=== PATIENT | male | born 1945 | race Caucasian/White ===

== ENCOUNTER 2024-02-22 22:04 | Emergency (ER) | payer MEDICARE, OTHER, SELFPAY ==
[2024-02-22 22:09] VITALS: BP 180/100
[2024-02-22 22:39] LABS: Urine Albumin Negative (Neg - Trace); Urine Bilirubin Negative (Negative); Urine Character Clear (Clear); Urine Color Yellow; Urine Glucose Negative (Negative); Urine Ketone Negative (Negative); Urine Leukocyte Negative (Negative); Urine Nitrite Negative (Negative); Urine Occult Blood 3+ (Negative); Urine Urobilinogen Negative (Neg - 1+)
[2024-02-22 22:44] LABS: % Basophils 0.3 % (0-2); % Eosinophils 0.2 % (0-6); % Immature Granulocytes 0.3 % (0-0.5); % Lymphocytes 11.5 % (20.5-51.1); % Monocytes 6.6 % (1.7-9.3); % Neutrophils 81.1 % (42.2-75.2); Absolute Lymphocytes 1.2 10^3/uL (1.2-3.4); Absolute Monocytes 0.7 10^3/uL (0.1-0.6); Absolute Neutrophils 8.2 10^3/uL (1.4-6.5); Hematocrit 46.5 % (39.0-52.0); Hemoglobin 15.6 g/dL (13.0-18.0); Mean Corp Hgb Conc. 33.5 g/dL (33.0-37.0); Mean Corpuscular Hgb 29.8 pg (27.0-31.0); Mean Corpuscular Volume 88.7 fL (80.0-94.0); Nucleated Red Blood Cells % 0 % (-); Red Blood Cell Count 5.24 10^6/uL (4.70-6.10); Red Cell Dist. Width 13.5 % (11.5-14.5); White Blood Cell Count 10.2 10^3/uL (4.8-10.8)
[2024-02-22 22:47] LABS: Urine Squamous Cell 0-2 /LPF (Few)
[2024-02-22 22:48] LABS: Urine Red Blood Cell 70-80 /HPF (0-2); Urine White Cell 0-2 /HPF (0-5)
[2024-02-22 22:51] LABS: Mean Platelet Volume 10.3 fL (7.4-10.4); Platelet Count 120 10^3/uL (130-400)
[2024-02-22 23:03] LABS: Blood Urea Nitrogen 31 mg/dl (9-20); Calcium 10.4 mg/dl (8.4-10.2); Carbon Dioxide 21 mmol/L (22-30); Chloride 105 mmol/L (98-107); Glucose 142 mg/dl (70-99); Sodium 141 mmol/L (135-145); eGFR 43.83
[2024-02-22 23:54] VITALS: BMI 30.6
[2024-02-22 23:56] VITALS: BP 200/100
[2024-02-23] VITALS: BP 192/105
--- NOTE | 2024-02-23 00:11 | ED.GENMED ---
History of Present Illness
<Paulette Muhammad DO, Resident - Last Filed: 02/23/24 03:13>
General
Chief Complaint: Male Genito-Urinary Symptoms
Source: patient and spouse
Time Seen by Provider: 02/22/24 23:51
History of Present Illness
History of Present Illness:
Mr. Ramon Smith is a 79yo male presenting pmh prostate ca s/p radical prostatectomy and radiation, R hernia with bowel repair, GERD in the ED for pink urine. R anterior flank pain started after eating his birthday meal. Was a 6/10 sore pain,
states it is increasing now. Does not radiate. Feels like when he had previous bleeding problem with the hernia surgical site. States bariatric surgeon did not use mesh and hand sutured the hernia repair, and was able to repair the bowel that was
injured in this surgery. The radiation for prostate ca 'burnt' his bladder, leaving him incontinent. Pt reports being diaphoretic and feverish after finishing working on his barn. Denies NELSON, dizziness, lightheadedness, N/V/D, dysuria, increased
frequency of urination, lower extremity swelling. Last BM last night. Denie hx nephrolithiasis.
Pt states he has white coat htn.
Past History
<Paulette Muhammad DO, Resident - Last Filed: 02/23/24 03:13>
Past History
ED Past Medical History: Cancer
ED Past Surgical History: Bowel resection (due to damage during R hernia repair), Urological and Other (R hernia)
Patient has exhibited threatening behavior?: No
Phy Exam
<Paulette Muhammad DO, Resident - Last Filed: 02/23/24 03:13>
General Physical Exam
General Presentation: well appearing
General age: appears stated age
General Skin: warm and dry
General Habitus: obese
General Mental: alert
Cardiovascular Exam
Cardiovascular Exam: regular rate/rhythm, no edema, no gallop, no murmur and normal peripheral pulses
Heart Sounds: normal
Pulmonary Exam
Pulmonary Exam: lungs clear, no respiratory distress, no rales, no rhonchi, no wheezing and no cough
Gastrointestinal Exam
Gastrointestinal Exam: soft, no organomegaly, no pulsatile mass, non distended and no cva tenderness
Palpation: right upper quadrant: Moderate tenderness
Abdominal Scars: right lower quadrant
Auscultation of Abdomen: hypoactive
Neurological Exam
Neurological Exam: alert and oriented x3
Psychiatric Exam
Psychiatric Exam: normal mood/affect
Course
<Paulette Muhammad DO, Resident - Last Filed: 02/23/24 03:13>
Orders/Labs/Results
Orders:
Orders
02/22/24 22:30
Basic Metabolic Panel Urgent
Complete Blood Count/With Diff Urgent
Urinalysis Reflex To Culture Urgent
Date Specimen was Collected: 02/22/24
Time Specimen was Collected: 22:16
Urine Microscopic Reflex Cult Urgent
02/23/24 00:20
CT Abd/pel Without Iv Or Oral Urgent
Comment:
Reason For Exam: hematuria, concern for nephrolithiasis
02/23/24 01:48
Morphine Sulfate 4 mg IV NOW STA
Ondansetron Injectable [Zofran] 4 mg IV NOW STA
02/23/24 01:51
Hydrocodone 5/APAP 325 [[place] 5/325] 2 tablet PO NOW STA
Abnormal Lab Results
02/22/24
22:30
Plt Count 120 L 10^3/uL
(130-400)
Absolute Neuts (auto) 8.2 H 10^3/uL
(1.4-6.5)
Absolute Monos (auto) 0.7 H 10^3/uL
(0.1-0.6)
Neutrophils % 81.1 H %
(42.2-75.2)
Lymphocytes % 11.5 L %
(20.5-51.1)
Carbon Dioxide 21 L mmol/L
(22-30)
BUN 31 H mg/dl
(9-20)
Creatinine 1.6 H mg/dL
(0.7-1.3)
Glucose 142 H mg/dl
(70-99)
Calcium 10.4 H mg/dl
(8.4-10.2)
Ur Occult Blood Reflex 3+ A
(Negative)
Urine RBC 70-80 A /HPF
(0-2)
02/22/24 22:30
02/22/24 22:30
Vital Signs
Initial and Last Documented VS:
Initial Vital Signs
Temp Pulse Resp BP Pulse Ox
98.4 F 87 20 180/100 96
02/22/24 22:09 02/22/24 22:09 02/22/24 22:09 02/22/24 22:09 02/22/24 22:09
Last Documented Vital Signs
Temp Pulse Resp BP Pulse Ox
98.4 F 77 15 172/88 96
02/22/24 22:09 02/23/24 01:00 02/23/24 01:00 02/23/24 01:00 02/22/24 22:09
<Hay Lisa, DO - Last Filed: 02/23/24 01:48>
Orders/Labs/Results
Orders:
Orders
02/22/24 22:30
Basic Metabolic Panel Urgent
Complete Blood Count/With Diff Urgent
Urinalysis Reflex To Culture Urgent
Date Specimen was Collected: 02/22/24
Time Specimen was Collected: 22:16
Urine Microscopic Reflex Cult Urgent
02/23/24 00:20
CT Abd/pel Without Iv Or Oral Urgent
Comment:
Reason For Exam: hematuria, concern for nephrolithiasis
02/23/24 01:48
Morphine Sulfate 4 mg IV NOW STA
Ondansetron Injectable [Zofran] 4 mg IV NOW STA
02/23/24 01:51
Hydrocodone 5/APAP 325 [[place] 5/325] 2 tablet PO NOW STA
Abnormal Lab Results
02/22/24
22:30
Plt Count 120 L 10^3/uL
(130-400)
Absolute Neuts (auto) 8.2 H 10^3/uL
(1.4-6.5)
Absolute Monos (auto) 0.7 H 10^3/uL
(0.1-0.6)
Neutrophils % 81.1 H %
(42.2-75.2)
Lymphocytes % 11.5 L %
(20.5-51.1)
Carbon Dioxide 21 L mmol/L
(22-30)
BUN 31 H mg/dl
(9-20)
Creatinine 1.6 H mg/dL
(0.7-1.3)
Glucose 142 H mg/dl
(70-99)
Calcium 10.4 H mg/dl
(8.4-10.2)
Ur Occult Blood Reflex 3+ A
(Negative)
Urine RBC 70-80 A /HPF
(0-2)
02/22/24 22:30
02/22/24 22:30
Vital Signs
Initial and Last Documented VS:
Initial Vital Signs
Temp Pulse Resp BP Pulse Ox
98.4 F 87 20 180/100 96
02/22/24 22:09 02/22/24 22:09 02/22/24 22:09 02/22/24 22:09 02/22/24 22:09
Last Documented Vital Signs
Temp Pulse Resp BP Pulse Ox
98.4 F 77 15 172/88 96
02/22/24 22:09 02/23/24 01:00 02/23/24 01:00 02/23/24 01:00 02/22/24 22:09
<Paulette Muhammad DO, Resident - Last Filed: 02/23/24 03:13>
MDM/Problems Addressed
Differential Diagnosis Includes:
pyelonephritis, bladder malignancy, SBO
MDM/Problems Addressed:
Mr. Ramon Smith is a 79yo male presenting pmh prostate ca s/p radical prostatectomy and radiation, R hernia with bowel repair, GERD in the ED for pink urine and RLQ abdominal pain.
Pyelonephritis is unlikely at this time due to pt being afebrile and no CVA tenderness.
Bladder malignancy is unlikely at this time due to no bladder abnormalities on CT abdomen/pelvis, no weight loss, and acute onset of hematuria. And presence of 3mm ureteral calculus with hydronephrosis.
SBO unlikely as pt's last BM yesterday evening, no N/V, and hypoactive bowel sounds.
Chronic conditions affecting care: Previous abdomnial surgery
Acute Exacerbation and/or Progression of Chronic Illness: Previous abdomnial surgery
<Paulette Muhammad DO, Resident - Last Filed: 02/23/24 03:13>
*Radiology
Radiology exam reviewed: radiology read reviewed
<Hay Lisa DO - Last Filed: 02/23/24 01:48>
*Radiology
Radiology exam reviewed: preliminary read by ED provider (Stone noted to the right ureter)
*Pulse Oximetry
Patient hypoxic: no
*Critical Care Note
Total Time (30-74mins, 75-104mins- exclusive of procedures): Not Applicable
Data Reviewed
Source: patient
Prescriptions/Medications Considered But Not Given:
Considered antibiotics but no evidence of infection in urine white count normal
ED Attending Note
<Paulette Muhammad DO, Resident - Last Filed: 02/23/24 03:13>
-
Portions of this chart may have been created with voice recognition software.� Occasional wrong word or��sound alike� substitutions may have occurred due to the inherent limitations of voice recognition software.
<Hay Lisa, DO - Last Filed: 02/23/24 01:48>
ED Attending Note
Patient seen and examined by attending physician: Yes
I performed a history and physical exam of patient and discussed management with resident, I reviewed resident's note and agree with documented findings and plan of care.: Yes
ED Attending Note:
79-year-old male who presents with right flank pain and hematuria. Does have a history of BPH and prostatectomy with chronic incontinence. My evaluation patient does still have pain but states it is sort of mild. Exam: Awake and alert, abdomen
soft nontender, no CVA tenderness. No fever. Assessment and plan: 3 mm stone noted in the right ureter. Pain control, Flomax and outpatient follow-up
Discharge Plan
Departure
Patient Disposition: Home (Routine Discharge)
Date of Disposition: 02/23/24
Time of Disposition: 02:12
Patient with high blood pressure during this ER visit?: Yes
Condition: Good
Discharge Problem:
Right nephrolithiasis, Hydronephrosis due to obstruction of ureter
Instructions: Kidney Stone, Adult ED, Kidney stone diet
Prescriptions:
New
tamsulosin [Flomax] 0.4 mg capsule
0.4 mg PO DAILY Qty: 10 0RF
hydrocodone-acetaminophen 5-325 mg tablet
2 tab PO Q6H PRN (Reason: Pain) Qty: 14 0RF
No Action
multivitamin Tablet
1 tab PO DAILY
biotin 1 mg Tablet
1 mg PO DAILY
cholecalciferol (vitamin D3) [Vitamin D3] 25 mcg (1,000 unit) Tablet
37.5 mcg PO DAILY
turmeric root extract 500 mg Tablet
500 mg PO DAILY
Referrals:
[facility] [Provider Group]
UNKNOWN - PT DOES,NOT KNOW [Unknown Provider] -
Activity Restrictions/Additional Instructions:
Please return to the emergency department if you develop fevers, chills, nausea, vomiting, or other new symptoms or if current symptoms worsen.
Please follow up with a urologist.
Interventions
Interventions:
*Risk Screen - Suicide Last Done: 02/22/24 22:09
*General Assessment Last Done: 02/22/24 22:09
*Neglect/Abuse Screening Last Done: 02/22/24 22:09
ED- Fall Risk Assessment Last Done: 02/22/24 22:09
*ED COVID-19 Vaccine History Last Done: 02/22/24 22:09
*Nursing Disposition Last Done: 02/23/24 02:39
ED-Male Genitourinary Assessment Last Done: 02/23/24 00:03
Discharge Date and Time
Discharge Date/Time: 02/23/24 02:39
Print Language: KAZAKH
[2024-02-23 00:33] VITALS: BP 183/97
[2024-02-23 01:00] VITALS: BP 172/88
[2024-02-23] MEDS: NORCO 5/325 2 TABLET PO (01:53)
--- NOTE | 2024-03-01 10:29 | OID.L.PAT ---
Pulmonary Nodule Pat Letter
- -
03/01/24
JILL COOMBS
[id number]
[place] [id number]
Scarlet MELCHOR,
A pulmonary nodule was seen on an imaging study done by [facility]. This was reviewed by the [facility] Pulmonary Nodule Advisory Board and the following recommendation was made:
Recommendation: Follow up CT Chest in 3-4 months
If you have any questions, please do not hesitate to contact your primary care physician. If you are in need of a Physician, you can go to [email or web address] and click on 'Find a Provider'. Type 'Family Medicine' in the search.
Oncology Nurse Navigator
[facility]
[phone]
--- NOTE | 2024-03-01 10:29 | OID.L.REC ---
Pulmonary Nodule Follow Up
- Recommendation
03/01/24
Pulmonary Nodule Review Recommendations
Your patient, JILL COOMBS, had a pulmonary nodule seen on an imaging study done on 02/23/24 in the [facility] Emergency Room.
This was reviewed by the [facility] Pulmonary Nodule Advisory Board and the following recommendation was made:
Recommendation: Follow up CT Chest in 3-4 months
If you have any questions please do not hesitate to contact us.
Sincerely,
Oncology Nurse Navigator
[facility]
[phone]
== END 2024-02-23 02:39 | disposition home or self-care (01) ==
LOC: EMR 22:04
PROVIDERS: Emergency Medicine; EMERGENCY PHYSICIAN Emergency Medicine; FAMILY PHYSICIAN Internal Medicine
DX: N13.2 Hydronephrosis with renal and ureteral calculous obstruction (principal); Z85.46 Personal history of malignant neoplasm of prostate; K21.9 Gastro-esophageal reflux disease without esophagitis; E66.9 Obesity, unspecified; Z90.79 Acquired absence of other genital organ(s)
CPT/HCPCS: 99284; 74176; 80048; 81003; 81015; 85025